=== PATIENT | male | born 1995 | race Two or more races ===

== ENCOUNTER 2021-05-26 18:12 | Emergency (ER) | payer OTHER ==
[~2021-05-26] VITALS: Ht 180.3 cm; Wt 91.6 kg
[2021-05-26] MEDS ORDERED: NORVASC5 MG PO (18:19)
--- NOTE | 2021-05-27 07:03 | EKG ---
[facility] [address] [facility] [place], [place] [address] Signed Normal sinus rhythm with sinus arrhythmia Incomplete right bundle branch block Borderline ECG No previous ECGs available Confirmed by BUZZ GODFREY MD ([id number] on 05/27/2021 7:02:56 AM Electronically Signed By: BUZZ GODFREY MD 05/27/21 0703 PATIENT NAME: RANDY GANDHI Electrocardiogram DATE OF : [birth year] PHYSICIAN: BUZZ GODFREY MD REPORT #: [id number] REPORT IS CONFIDENTIAL AND NOT TO BE RELEASED WITHOUT AUTHORIZATION
== END 2021-05-26 20:05 | disposition home or self-care (01) ==
LOC: ED 18:12
DX: R00.2 Palpitations (principal); I10 Essential (primary) hypertension; Z79.899 Other long term (current) drug therapy
CPT/HCPCS: 36415; 71045; 80053; 84443; 84484; 85025; 85379; 93005; 93010; 99285-25